=== PATIENT | female | born 1995 | race Caucasian/White ===

== ENCOUNTER 2018-12-19 23:05 | Emergency (ER) | payer OTHER ==
[~2018-12-19] VITALS: Ht 157.5 cm; Wt 81.6 kg
--- NOTE | 2018-12-19 23:22 | NUR ---
PT. WAS TRIAGED SHE REPORTED SHE WAS HAVING UPPER ABD. PAIN, NO BLEEDING. WHEN SHE FOUND OUT THAT THERE WAS NO OBGYN AT THIS FACILITY OR ANYWAY TO MONITOR FOR CONTRACTIONS SHE CHOSE TO GO TO HER DOCTOR INSTEAD OF BEING SEEN HERE. [place] [facility] [facility]
[2018-12-19 23:28] VITALS: BP 0/0
== END 2018-12-19 23:58 | disposition left against medical advice (07) ==
LOC: ER FS 23:09
DX: O26.893 Other specified pregnancy related conditions, third trimester (principal); Z3A.34 34 weeks gestation of pregnancy
CPT/HCPCS: 99281